=== PATIENT | female | born 1950 | race Caucasian/White ===

== ENCOUNTER 2016-06-01 08:19 | Day surgery (SDC) | payer BC ==
--- NOTE | ~2016-06-01 | EGD ---
EGD REPORT [facility] [address] [place] [place] [address] NAME: SHARI YU : [birth year] STATUS : REG [facility]#: [id number] AGE: 65 ADM/REG DATE : 06/01/16 MR#: [id number] REPORT SERV DATE: 06/01/16 DICTATED BY: MILAGROS SANFORD DATE: 06/01/16 REPORT STATUS : Draft TRANSCRIBED BY: [facility] DATE: 06/01/16 Endoscopy Center Patient Name: Shari Yu Date of : 1950 Attending MD: MILAGROS SANFORD MD Procedure Date No Time: 06/01/2016 Procedure: Colonoscopy Indications: High risk colon cancer surveillance: Personal history of colonic polyps Referring MD: KAT OSORIO Medicines: as per anesthesia Complications: No immediate complications. Procedure: Pre-Anesthesia Assessment: - ASA Grade Assessment: II - A patient with mild systemic disease. After I obtained informed consent, the scope was passed under direct vision. Throughout the procedure, the patient's blood pressure, pulse, and oxygen saturations were monitored continuously. The PCF H190L [id number] was introduced through the anus and advanced to the cecum, identified by appendiceal orifice and ileocecal valve. The colonoscopy was performed without difficulty. The patient tolerated the procedure. The quality of the bowel preparation was adequate to identify polyps. Findings: The perianal and digital rectal examinations were normal. Two sessile polyps were found in the ascending colon. The polyps were 3 to 4 mm in size. These polyps were removed with a jumbo cold forceps. Resection and retrieval were complete. Three sessile polyps were found in the transverse colon. The polyps were 3 to 6 mm in size. These polyps were removed with a jumbo cold forceps. Resection and retrieval were complete. Two sessile polyps were found in the descending colon. The polyps were 4 to 5 mm in size. These polyps were removed with a jumbo cold forceps. Resection and retrieval were complete. Impression: - Two 3 to 4 mm polyps in the ascending colon. Resected and retrieved. - Three 3 to 6 mm polyps in the transverse colon. Resected and retrieved. - Two 4 to 5 mm polyps in the descending colon. Resected and retrieved. Recommendation: - Await pathology results. EGD REPORT [address] [address] NAME: SHARI YU : [birth year] STATUS : REG [facility] [place] PAT#: [id number] AGE: 65 ADM/REG DATE : 06/01/16 MR#: [id number] REPORT SERV DATE: 06/01/16 DICTATED BY: MILAGROS SANFORD DATE: 06/01/16 REPORT STATUS : Draft TRANSCRIBED BY: [email or web address] DATE: 06/01/16 - Repeat colonoscopy for surveillance based on pathology results. Procedure Code(s): --- Professional --- 43108, Colonoscopy, flexible, proximal to splenic flexure; with biopsy, single or multiple Diagnosis Code(s): --- Professional --- D12.4, Benign neoplasm of descending colon D12.3, Benign neoplasm of transverse colon D12.2, Benign neoplasm of ascending colon Z86.010, Personal history of colonic polyps CPT copyright 2013 [employer]. All rights reserved. The codes documented in this report are preliminary and upon refractory grinder operator review may be revised to meet current compliance requirements. MILAGROS SANFORD MD 06/01/2016 9:56 AM This report has been signed electronically. Number of Addenda: 0 Note Initiated On: 06/01/2016 9:13 AM Scope Withdrawal Time 0 hours 17 minutes 7 seconds [id number] [id number]
--- NOTE | ~2016-06-01 | EGD ---
EGD REPORT [facility] [address] [place] [place] [address] NAME: SHARI YU : [birth year] STATUS : REG [facility]#: [id number] AGE: 65 ADM/REG DATE : 06/01/16 MR#: [id number] REPORT SERV DATE: 06/01/16 DICTATED BY: MILAGROS SANFORD DATE: 06/01/16 REPORT STATUS : Draft [facility]ANSCRIBED BY: [facility] DATE: 06/01/16 Endoscopy Center Patient Name: Shari Yu Date of : 1950 Attending MD: MILAGROS SANFORD MD Procedure Date No Time: 06/01/2016 Procedure: Colonoscopy Indications: High risk colon cancer surveillance: Personal history of colonic polyps Referring MD: KAT OSORIO Medicines: as per anesthesia Complications: No immediate complications. Procedure: Pre-Anesthesia Assessment: - ASA Grade Assessment: II - A patient with mild systemic disease. After I obtained informed consent, the scope was passed under direct vision. Throughout the procedure, the patient's blood pressure, pulse, and oxygen saturations were monitored continuously. The PCF H190L [id number] was introduced through the anus and advanced to the cecum, identified by appendiceal orifice and ileocecal valve. The colonoscopy was performed without difficulty. The patient tolerated the procedure. The quality of the bowel preparation was adequate to identify polyps. Findings: The perianal and digital rectal examinations were normal. Two sessile polyps were found in the ascending colon. The polyps were 3 to 4 mm in size. These polyps were removed with a jumbo cold forceps. Resection and retrieval were complete. Three sessile polyps were found in the transverse colon. The polyps were 3 to 6 mm in size. These polyps were removed with a jumbo cold forceps. Resection and retrieval were complete. Two sessile polyps were found in the descending colon. The polyps were 4 to 5 mm in size. These polyps were removed with a jumbo cold forceps. Resection and retrieval were complete. Impression: - Two 3 to 4 mm polyps in the ascending colon. Resected and retrieved. - Three 3 to 6 mm polyps in the transverse colon. Resected and retrieved. - Two 4 to 5 mm polyps in the descending colon. Resected and retrieved. Recommendation: - Await pathology results. EGD REPORT [address] [address] NAME: SHARI YU : [birth year] STATUS : REG [facility] [place] PAT#: [id number] AGE: 65 ADM/REG DATE : 06/01/16 MR#: [id number] REPORT SERV DATE: 06/01/16 DICTATED BY: MILAGROS SANFORD DATE: 06/01/16 REPORT STATUS : Draft TRANSCRIBED BY: [employer] DATE: 06/01/16 - Repeat colonoscopy for surveillance based on pathology results. Procedure Code(s): --- Professional --- 71815, Colonoscopy, flexible, proximal to splenic flexure; with biopsy, single or multiple Diagnosis Code(s): --- Professional --- D12.4, Benign neoplasm of descending colon D12.3, Benign neoplasm of transverse colon D12.2, Benign neoplasm of ascending colon Z86.010, Personal history of colonic polyps CPT copyright 2013 [employer]. All rights reserved. The codes documented in this report are preliminary and upon transportation worker review may be revised to meet current compliance requirements. MILAGROS SANFORD MD 06/01/2016 9:56 AM This report has been signed electronically. Number of Addenda: 0 Note Initiated On: 06/01/2016 9:13 AM Scope Withdrawal Time 0 hours 17 minutes 7 seconds [id number] [id number]
[~2016-06-01 08:19] MED LIST: ALTACE10 MG PO; MICROZIDE PO; PRILO PO; ZOCOR20 PO
== END 2016-06-01 23:59 | disposition home or self-care (01) ==
LOC: DMU 08:19
PROVIDERS: Internal Medicine Gastroenterology
PROC: 0DBL8ZZ Excision of Transverse Colon, Via Natural or Artificial Opening Endoscopic (ICD-10-PCS; 2016-06-01)
PROC: 0DBK8ZZ Excision of Ascending Colon, Via Natural or Artificial Opening Endoscopic (ICD-10-PCS; 2016-06-01)
PROC: 0DBM8ZZ Excision of Descending Colon, Via Natural or Artificial Opening Endoscopic (ICD-10-PCS; principal; 2016-06-01 08:30)
DX: D12.3 Benign neoplasm of transverse colon (principal); D12.4 Benign neoplasm of descending colon; K63.5 Polyp of colon; K21.9 Gastro-esophageal reflux disease without esophagitis; I10 Essential (primary) hypertension; E78.5 Hyperlipidemia, unspecified; E78.00 Pure hypercholesterolemia, unspecified; Z86.010 Personal history of colon polyps; Z79.899 Other long term (current) drug therapy; Z96.1 Presence of intraocular lens; Z98.41 Cataract extraction status, right eye; Z98.42 Cataract extraction status, left eye; Z86.718 Personal history of other venous thrombosis and embolism; Z90.721 Acquired absence of ovaries, unilateral; Z98.890 Other specified postprocedural states
CPT/HCPCS: 88305